=== PATIENT | female | born 1980 | race Hispanic/Latino ===

== ENCOUNTER 2017-04-04 11:51 | Emergency (ER) | payer MEDICARE, MEDICAID ==
[2017-04-04 12:06] VITALS: BMI 34.3
[2017-04-04 12:13] VITALS: RESP 18; TEMP 98.6; O2SAT 95
[2017-04-04] MEDS ORDERED: Sodium Chloride 0.9% 1,000 ML IV STA (12:32)
--- NOTE | 2017-04-04 12:38 | ED PDOC ---
Arrival/HPI - General Chief Complaint: GI Problem Time Seen by Provider: 04/04/17 12:15 Historian: Patient - History of Present Illness Narrative History of Present Illness (Text): 04/04/17 12:32 A 36 year old female, whose past medical history includes ulcerative colitis, presents to the emergency department complaining of multiple episodes of non- bloody diarrhea for 2 weeks. Patient notes nausea, abdominal cramping and worsening bowel incontinence. Patient denies any fever, chills, vomiting, chest pain, shortness of breath or any other complaints. PMD: Dr. Hill Time/Duration: Other (2 weeks) Symptom Course: Worsening Quality: Other Context: Home Past Medical History - Provider Review Nursing Documentation Reviewed: Yes - Infectious Disease Hx of Infectious Diseases: None - Tetanus Immunization Tetanus Immunization: Unknown - Past Medical History Past Medical History: No Previous - HEENT Hx Deafness: Yes (R ear) - Musculoskeletal/Rheumatological Hx Arthritis: Yes (rheumatoid arthritis) Hx Back Pain: Yes Hx Falls: No Hx Herniated Disk: Yes Hx Spinal Stenosis: Yes Hx Unsteady Gait: Yes Other/Comment: R knee problem. carpal tunnel - Gastrointestinal Hx Gastrointestinal Disorders: (colitis) Other/Comment: Ulcerative colitis - Psychiatric Hx Depression: No Hx Emotional Abuse: No Hx Physical Abuse: No Hx Substance Use: No - Past Surgical History Past Surgical History: No Previous - Anesthesia Hx Anesthesia: Yes Hx Anesthesia Reactions: No - Suicidal Assessment Feels Threatened In Home Enviroment: No Family/Social History - Physician Review Nursing Documentation Reviewed: Yes Family/Social History: No Known Family HX Smoking Status: Light Smoker < 10 Cigarettes Daily Hx Alcohol Use: No Hx Substance Use: No Hx Substance Use Treatment: No Allergies/Home Meds Allergies/Adverse Reactions: Allergies No Known Allergies Allergy (Verified 04/04/17 14:47) Home Medications: Home Meds Medication Instructions Recorded Confirmed Clonazepam [Clonazepam] 1 mg PO TID 03/27/16 04/04/17 Cyclobenzaprine [Flexeril] 5 mg PO TID 03/27/16 04/04/17 Diclofenac [Diclofenac] 50 mg PO TID 03/27/16 04/04/17 Famotidine [Pepcid] 20 mg PO TID 03/27/16 04/04/17 Methadone [Methadone] 145 mg PO DAILY 03/27/16 04/04/17 Topiramate [Topamax] 50 mg PO BID 03/27/16 04/04/17 Zolpidem [Ambien] 10 mg PO HS 03/27/16 04/04/17 buPROPion [Wellbutrin] 75 mg PO BID 03/27/16 04/04/17 Review of Systems - Physician Review All systems were reviewed & negative as marked: Yes - Review of Systems Constitutional: absent: Fevers, Night Sweats Respiratory: absent: SOB Cardiovascular: absent: Chest Pain Gastrointestinal: Abdominal Pain, Diarrhea, Nausea. absent: Vomiting Physical Exam Vital Signs Reviewed: Yes Vital Signs Temp Pulse Resp BP Pulse Ox 04/04/17 13:11 89 18 111/78 95 04/04/17 12:12 98.6 F 91 H 18 109/81 95 Temperature: Afebrile Blood Pressure: Normal Pulse: Regular Respiratory Rate: Normal Appearance: Positive for: Well-Appearing, Non-Toxic, Comfortable Pain Distress: None Mental Status: Positive for: Alert and Oriented X 3 - Systems Exam Head: Present: Atraumatic, Normocephalic Pupils: Present: PERRL Extroacular Muscles: Present: EOMI Conjunctiva: Present: Normal Mouth: Present: Moist Mucous Membranes Neck: Present: Normal Range of Motion Respiratory/Chest: Present: Clear to Auscultation, Good Air Exchange. No: Respiratory Distress, Accessory Muscle Use Cardiovascular: Present: Regular Rate and Rhythm, Normal S1, S2. No: Murmurs Abdomen: Present: Normal Bowel Sounds. No: Tenderness, Distention, Peritoneal Signs Back: Present: Normal Inspection Upper Extremity: Present: Normal Inspection. No: Cyanosis, Edema Lower Extremity: Present: Normal Inspection. No: Edema Neurological: Present: GCS=15, CN II-XII Intact, Speech Normal Skin: Present: Warm, Dry, Normal Color. No: Rashes Psychiatric: Present: Alert, Oriented x 3, Normal Insight, Normal Concentration Medical Decision Making ED Course and Treatment: 04/04/17 12:32 Impression: A 36 year old female with multiple episodes of non-bloody diarrhea. Patient notes nausea, abdominal cramping and bowel incontinence. r/o colitis flare Plan: -- Labs -- Urinalysis -- Zofran and IV fluids -- Reassess and disposition Progress Notes: Report Date : 04/04/2017 14:12:36 PROCEDURE: CT Abdomen and Pelvis with contrast Dictator : Zane Macias MD IMPRESSION: No acute findings. Fatty infiltration of the liver 04/04/17 14:[address] unremarkable. pain/symptoms improved. suspect mild flare. willl d/c with short steriod course and outpt f/u. pt states feels well for dc. advise outpt f/u and return precautions - Lab Interpretations Lab Results: 04/04/17 13:18 04/04/17 13:18 Lab Results 04/04/17 13:18: Sodium 142, Potassium 4.7, Chloride 106, Carbon Dioxide 25, Anion Gap 16, BUN 11, Creatinine 1.4, Est GFR ( Amer) 51, Est GFR (Non- Af Amer) 43, Random Glucose 91, Calcium 9.2, Total Bilirubin 0.3, AST 26, ALT 48 , Alkaline Phosphatase 91, Total Protein 7.1, Albumin 4.1, Globulin 2.9, Albumin /Globulin Ratio 1.4, Lipase 166 04/04/17 13:18: PT 10.7, INR 0.99, APTT 32.1 H 04/04/17 13:18: WBC 7.0 D, RBC 4.70, Hgb 13.6, Hct 41.4, MCV 88.1, MCH 28.9, MCHC 32.9, RDW 13.7, Plt Count 196, MPV 9.8, Gran % 43.0 L, Lymph % (Auto) 46.4 H, [place] % (Auto) 7.6 H, Eos % (Auto) 2.7, Baso % (Auto) 0.3, Gran # 3.00, Lymph # 3.2, [place] # 0.5, Eos # 0.2, Baso # 0.02 04/04/17 13:14: Urine Color Yellow, Urine Appearance Clear, Urine pH 6.5, Ur Specific [place] 1.015, Urine Protein Negative, Urine Glucose (UA) Negative, Urine Ketones Negative, Urine Blood Negative, Urine Nitrate Negative, Urine Bilirubin Negative, Urine Urobilinogen 0.2, Ur Leukocyte Esterase Negative, Urine HCG, Qual Negative I have reviewed the lab results: Yes - RAD Interpretation Radiology Orders: 04/04/17 13:31 ABD & PELVIS IV CONTRAST ONLY [CT] Stat - Medication Orders Current Medication Orders: Discontinued Medications Sodium Chloride (Sodium Chloride 0.9%) 1,000 mls @ 1,000 mls/hr IV .Q1H STA Stop: 04/04/17 13:31 Last Admin: 04/04/17 13:00 Dose: 1,000 mls/hr Iohexol (Omnipaque 350 100 Ml) Confirm Administered Dose 350 mg .ROUTE .STK-MED ONE Stop: 04/04/17 13:39 Ketorolac Tromethamine (Toradol) 30 mg IVP STAT STA Stop: 04/04/17 13:34 Last Admin: 04/04/17 13:45 Dose: 30 mg Ondansetron HCl (Zofran Inj) 4 mg IVP STAT STA Stop: 04/04/17 12:33 Last Admin: 04/04/17 13:00 Dose: 4 mg Prednisone (Prednisone Tab) 50 mg PO STAT STA Stop: 04/04/17 14:25 Last Admin: 04/04/17 14:43 Dose: 50 mg - Scribe Statement The provider has reviewed the documentation as recorded by the Zane Jimenez Provider Scribe Attestation: All medical record entries made by the Scribe were at my direction and personally dictated by me. I have reviewed the chart and agree that the record accurately reflects my personal performance of the history, physical exam, medical decision making, and the department course for this patient. I have also personally directed, reviewed, and agree with the discharge instructions and disposition. Disposition/Present on Arrival - Present on Arrival Any Indicators Present on Arrival: No History of DVT/PE: No History of Uncontrolled Diabetes: No Urinary Catheter: No History of Decub. Ulcer: No History Surgical Site Infection Following: None - Disposition Have Diagnosis and Disposition been Completed?: Yes Diagnosis: Abdominal pain Disposition: HOME/ ROUTINE Disposition Time: 01:00 Condition: STABLE Discharge Instructions (ExitCare): Acute Diarrhea (ED), Acute Abdominal Pain ( ED), Gas and Bloating (ED), Gingivostomatitis (ED) Additional Instructions: please follow up with specialist. return to er with worseing symptoms or concerns. Prescriptions: Prednisone 50 mg PO DAILY #4 tablet Referrals: Williams Kimbrough MD [Staff Provider] - Follow up with primary Mary Hill DO [Primary Care Provider] - Follow up with primary Forms: Adsame (German)
[2017-04-04 13:11] VITALS: BP 111/78; PULSE 89
[2017-04-04 13:20] LABS: PH,URINE 6.5 (4.7-8.0); URINE BILIRUBIN NEGATIVE (NEGATIVE); URINE BLOOD NEGATIVE (NEGATIVE); URINE GLUCOSE (UA) NEGATIVE (NEGATIVE); URINE KETONE NEGATIVE (NEGATIVE); URINE LEUKOCYTE ESTERASE NEGATIVE Leu/uL (NEGATIVE); URINE PROTEIN NEGATIVE mg/dL (<30 mg/dL); URINE UROBILINOGEN 0.2 E.U./dL (<1 E.U./dL)
[2017-04-04 13:22] LABS: BASO # 0.02 K/mm3 (0.0-2.0); BASO % 0.3 % (0.0-3.0); EOS # 0.2 (0.0-0.7); EOS % 2.7 % (1.5-5.0); HEMATOCRIT 41.4 % (36.0-48.0); LYMPH # 3.2 (1.2-3.4); LYMPH % 46.4 % (22.0-35.0); MEAN CELL VOLUME 88.1 fl (80.0-105.0); MEAN CORPUSCULAR HEMOGLOBIN 28.9 pg (25.0-35.0); MEAN CORPUSCULAR HGB CONC 32.9 g/dl (31.0-37.0); MEAN PLATELET VOLUME 9.8 fl (7.0-11.0); MONO # 0.5 (0.1-0.6); MONO % 7.6 % (1.0-6.0); RED CELL DISTRIBUTION WIDTH 13.7 % (11.5-14.5)
[2017-04-04 13:30] LABS: ALB/GLOB RATIO 1.4 (1.1-1.8); BILIRUBIN,TOTAL 0.3 mg/dL (0.2-1.3); CALCIUM 9.2 mg/dL (8.4-10.5); POTASSIUM 4.7 mmol/L (3.6-5.0); TOTAL PROTEIN 7.1 g/dL (5.8-8.3)
[2017-04-04 13:32] LABS: URINE APPEARANCE CLEAR (CLEAR); URINE COLOR YELLOW (YELLOW)
[2017-04-04] MEDS ORDERED: Iohexol 350 MG/100 ML VIAL ONE (13:38)
[2017-04-04 13:39] LABS: INR 0.99 (0.93-1.08); PARTIAL THROMBOPLASTIN TIME 32.1 Seconds (23.7-30.8)
--- NOTE | 2017-04-04 14:14 | CT ---
PROCEDURE: CT Abdomen and Pelvis with contrast HISTORY: abd pain, diarrhea COMPARISON: None. TECHNIQUE: Contrast dose: 100 cc of Omni 350 Radiation dose: Total exam DLP = 1186 mGy-cm. This CT exam was performed using one or more of the following dose reduction techniques: Automated exposure control, adjustment of the mA and/or kV according to patient size, and/or use of iterative reconstruction technique. FINDINGS: LOWER THORAX: Unremarkable. LIVER: There is fatty infiltration of the liver. There is an area of focal fatty sparing in the left lobe. GALLBLADDER AND BILE DUCTS: Unremarkable. PANCREAS: Unremarkable. No gross lesion or ductal dilatation. SPLEEN: Unremarkable. ADRENALS: Unremarkable. No mass. KIDNEYS AND URETERS: Unremarkable. No hydronephrosis. No solid mass. VASCULATURE: Unremarkable. No aortic aneurysm. BOWEL: Unremarkable. No obstruction. No gross mural thickening. Mild constipation APPENDIX: Normal appendix. PERITONEUM: Unremarkable. No free fluid. No free air. LYMPH NODES: Unremarkable. No enlarged lymph nodes. BLADDER: Unremarkable. REPRODUCTIVE: Unremarkable. BONES: No acute fracture. OTHER FINDINGS: None. IMPRESSION: No acute findings. Fatty infiltration of the liver
== END 2017-04-04 14:46 | disposition home or self-care (01) ==
LOC: ED 11:51
DX: R10.9 Unspecified abdominal pain (principal)
CPT/HCPCS: 74177; 80053; 81003; 83690; 84703; 85025; 85610; 85730; 96361; 96374; 96375; 99283; J1885; J2405; J7040; Q9967